=== PATIENT | male | born 1935 | race Caucasian/White ===

== ENCOUNTER → 2018-11-30 | Outpatient (CLI) | payer OTHER ==
[~2018-11-30] MED LIST: ACEDIPPM PO; CARV6.25 PO; CEPH500 PO; DICL75ER PO; DIGO.125 PO; DOCU100 PO; LISI5 PO; MED FOR TREMORS; MESA400ER PO; NAPR500; OXYACE5T PO; PRIM50 PO; SPIR25 PO; SULTRIDS PO; SULTRISS PO; WARF10 PO; WARF5 PO; WARF7.5; WARF7.5 PO
== END | disposition home or self-care (01) ==
LOC: PLD 07:27 → LAB SHORT 07:27
DX: L57.0 Actinic keratosis (principal)
CPT/HCPCS: 88305; 88312

== ENCOUNTER 2019-01-14 12:30 | Day surgery (SDC) | payer OTHER | END 2019-01-14 23:02 | disposition home or self-care (01) | LOC: WOUND 12:30 | DX: L97.412 Non-pressure chronic ulcer of right heel and midfoot with fat layer exposed (principal); I11.0 Hypertensive heart disease with heart failure; I50.9 Heart failure, unspecified; I42.9 Cardiomyopathy, unspecified; G47.30 Sleep apnea, unspecified; I42.0 Dilated cardiomyopathy; R41.3 Other amnesia; E55.9 Vitamin D deficiency, unspecified; I89.0 Lymphedema, not elsewhere classified; D53.9 Nutritional anemia, unspecified; G40.909 Epilepsy, unspecified, not intractable, without status epilepticus; M19.90 Unspecified osteoarthritis, unspecified site; I82.409 Acute embolism and thrombosis of unspecified deep veins of unspecified lower extremity | CPT/HCPCS: G0463 ==

== ENCOUNTER 2019-01-21 01:16 | Day surgery (SDC) | payer OTHER | END 2019-01-21 22:48 | disposition home or self-care (01) | LOC: WOUND 01:16 | DX: L97.412 Non-pressure chronic ulcer of right heel and midfoot with fat layer exposed (principal); I11.0 Hypertensive heart disease with heart failure; I50.9 Heart failure, unspecified; D64.9 Anemia, unspecified; M19.90 Unspecified osteoarthritis, unspecified site; G47.30 Sleep apnea, unspecified; Z86.718 Personal history of other venous thrombosis and embolism; Z79.899 Other long term (current) drug therapy; Z79.01 Long term (current) use of anticoagulants ==

== ENCOUNTER 2019-01-28 14:45 | Day surgery (SDC) | payer OTHER | END 2019-01-28 23:52 | disposition home or self-care (01) | LOC: WOUND 14:45 | DX: L97.412 Non-pressure chronic ulcer of right heel and midfoot with fat layer exposed (principal); G47.30 Sleep apnea, unspecified; D64.9 Anemia, unspecified; I50.9 Heart failure, unspecified; I11.0 Hypertensive heart disease with heart failure; G40.909 Epilepsy, unspecified, not intractable, without status epilepticus; M19.90 Unspecified osteoarthritis, unspecified site; I89.0 Lymphedema, not elsewhere classified | CPT/HCPCS: Q4196 ==

== ENCOUNTER 2019-02-04 10:00 | Day surgery (SDC) | payer OTHER | END 2019-02-04 23:34 | disposition home or self-care (01) | LOC: WOUND 10:00 | DX: L97.412 Non-pressure chronic ulcer of right heel and midfoot with fat layer exposed (principal); I11.0 Hypertensive heart disease with heart failure; I50.9 Heart failure, unspecified; I48.91 Unspecified atrial fibrillation; G47.30 Sleep apnea, unspecified; G40.909 Epilepsy, unspecified, not intractable, without status epilepticus; Z86.718 Personal history of other venous thrombosis and embolism | CPT/HCPCS: Q4196 ==

== ENCOUNTER 2019-02-11 14:18 | Day surgery (SDC) | payer OTHER | END 2019-02-11 23:38 | disposition home or self-care (01) | LOC: WOUND 14:18 | DX: L97.412 Non-pressure chronic ulcer of right heel and midfoot with fat layer exposed (principal); I11.0 Hypertensive heart disease with heart failure; I50.9 Heart failure, unspecified; I48.91 Unspecified atrial fibrillation; G47.30 Sleep apnea, unspecified; G40.909 Epilepsy, unspecified, not intractable, without status epilepticus; I25.10 Atherosclerotic heart disease of native coronary artery without angina pectoris; Z86.718 Personal history of other venous thrombosis and embolism ==

== ENCOUNTER 2019-02-18 14:00 | Day surgery (SDC) | payer OTHER | END 2019-02-18 22:47 | disposition home or self-care (01) | LOC: WOUND 14:00 | DX: L97.412 Non-pressure chronic ulcer of right heel and midfoot with fat layer exposed (principal); I11.0 Hypertensive heart disease with heart failure; I50.9 Heart failure, unspecified; G47.30 Sleep apnea, unspecified; Z86.718 Personal history of other venous thrombosis and embolism | CPT/HCPCS: Q4196 ==

== ENCOUNTER 2019-02-25 00:19 | Day surgery (SDC) | payer OTHER | END 2019-02-25 22:55 | disposition home or self-care (01) | LOC: WOUND 00:19 | DX: L97.412 Non-pressure chronic ulcer of right heel and midfoot with fat layer exposed (principal); I11.0 Hypertensive heart disease with heart failure; I50.9 Heart failure, unspecified; D64.9 Anemia, unspecified; I25.10 Atherosclerotic heart disease of native coronary artery without angina pectoris; I48.91 Unspecified atrial fibrillation; I42.9 Cardiomyopathy, unspecified; G47.30 Sleep apnea, unspecified; Z86.718 Personal history of other venous thrombosis and embolism | CPT/HCPCS: Q4196 ==

== ENCOUNTER 2019-03-04 00:21 | Day surgery (SDC) | payer OTHER | END 2019-03-04 22:49 | disposition home or self-care (01) | LOC: WOUND 00:21 | DX: L97.412 Non-pressure chronic ulcer of right heel and midfoot with fat layer exposed (principal); I11.0 Hypertensive heart disease with heart failure; I50.9 Heart failure, unspecified; I48.91 Unspecified atrial fibrillation; G47.30 Sleep apnea, unspecified; Z86.718 Personal history of other venous thrombosis and embolism; D64.9 Anemia, unspecified ==

== ENCOUNTER 2019-03-11 00:56 | Day surgery (SDC) | payer OTHER | END 2019-03-11 23:21 | disposition home or self-care (01) | LOC: WOUND 00:56 | DX: L97.412 Non-pressure chronic ulcer of right heel and midfoot with fat layer exposed (principal); I11.0 Hypertensive heart disease with heart failure; I50.9 Heart failure, unspecified; I48.91 Unspecified atrial fibrillation; D64.9 Anemia, unspecified; Z86.718 Personal history of other venous thrombosis and embolism ==

== ENCOUNTER 2019-03-18 00:24 | Day surgery (SDC) | payer OTHER | END 2019-03-18 23:14 | disposition home or self-care (01) | LOC: WOUND 00:24 | DX: L97.412 Non-pressure chronic ulcer of right heel and midfoot with fat layer exposed (principal); I89.0 Lymphedema, not elsewhere classified; G47.30 Sleep apnea, unspecified; I11.0 Hypertensive heart disease with heart failure; I50.9 Heart failure, unspecified; Z79.899 Other long term (current) drug therapy ==

== ENCOUNTER 2019-03-25 10:30 | Day surgery (SDC) | payer OTHER, SELFPAY | END 2019-03-25 22:43 | disposition home or self-care (01) | LOC: WOUND 10:30 | DX: L97.412 Non-pressure chronic ulcer of right heel and midfoot with fat layer exposed (principal); I11.0 Hypertensive heart disease with heart failure; I50.9 Heart failure, unspecified; G47.30 Sleep apnea, unspecified; I48.91 Unspecified atrial fibrillation; D64.9 Anemia, unspecified; G40.909 Epilepsy, unspecified, not intractable, without status epilepticus; Z86.718 Personal history of other venous thrombosis and embolism; Z79.899 Other long term (current) drug therapy; Z79.01 Long term (current) use of anticoagulants; R60.9 Edema, unspecified; M20.41 Other hammer toe(s) (acquired), right foot; M19.071 Primary osteoarthritis, right ankle and foot | CPT/HCPCS: 73630; 87071; 87075; 87077; 87186; 87205; G0463 ==

== ENCOUNTER 2019-04-01 10:30 | Day surgery (SDC) | payer OTHER, SELFPAY | END 2019-04-01 23:26 | disposition home or self-care (01) | LOC: WOUND 10:30 | DX: L97.412 Non-pressure chronic ulcer of right heel and midfoot with fat layer exposed (principal); G47.30 Sleep apnea, unspecified; I89.0 Lymphedema, not elsewhere classified; I11.0 Hypertensive heart disease with heart failure; I50.9 Heart failure, unspecified; M19.90 Unspecified osteoarthritis, unspecified site; Z79.899 Other long term (current) drug therapy ==

== ENCOUNTER 2019-04-08 10:43 | Day surgery (SDC) | payer OTHER, SELFPAY | END 2019-04-08 22:53 | disposition home or self-care (01) | LOC: WOUND 10:43 | DX: L97.412 Non-pressure chronic ulcer of right heel and midfoot with fat layer exposed (principal); G47.30 Sleep apnea, unspecified; I11.0 Hypertensive heart disease with heart failure; I50.9 Heart failure, unspecified; Z79.899 Other long term (current) drug therapy ==

== ENCOUNTER 2019-04-15 10:38 | Day surgery (SDC) | payer OTHER, SELFPAY | END 2019-04-15 23:08 | disposition home or self-care (01) | LOC: WOUND 10:38 | DX: L97.412 Non-pressure chronic ulcer of right heel and midfoot with fat layer exposed (principal); I73.9 Peripheral vascular disease, unspecified; I11.0 Hypertensive heart disease with heart failure; I50.9 Heart failure, unspecified; I48.91 Unspecified atrial fibrillation; I25.10 Atherosclerotic heart disease of native coronary artery without angina pectoris; D64.9 Anemia, unspecified; G47.30 Sleep apnea, unspecified; Z79.899 Other long term (current) drug therapy; Z86.718 Personal history of other venous thrombosis and embolism ==

== ENCOUNTER 2019-04-29 10:35 | Day surgery (SDC) | payer OTHER, SELFPAY | END 2019-04-29 22:57 | disposition home or self-care (01) | LOC: WOUND 10:35 | DX: L97.412 Non-pressure chronic ulcer of right heel and midfoot with fat layer exposed (principal); I73.9 Peripheral vascular disease, unspecified; I11.0 Hypertensive heart disease with heart failure; I50.9 Heart failure, unspecified; I48.91 Unspecified atrial fibrillation; I25.10 Atherosclerotic heart disease of native coronary artery without angina pectoris; G47.30 Sleep apnea, unspecified; D64.9 Anemia, unspecified; Z86.73 Personal history of transient ischemic attack (TIA), and cerebral infarction without residual deficits | CPT/HCPCS: G0463 ==

== ENCOUNTER 2019-05-06 00:18 | Day surgery (SDC) | payer OTHER, SELFPAY | END 2019-05-06 22:55 | disposition home or self-care (01) | LOC: WOUND 00:18 | DX: E11.621 Type 2 diabetes mellitus with foot ulcer (principal); L97.412 Non-pressure chronic ulcer of right heel and midfoot with fat layer exposed; I11.0 Hypertensive heart disease with heart failure; I50.9 Heart failure, unspecified; E11.51 Type 2 diabetes mellitus with diabetic peripheral angiopathy without gangrene; I73.9 Peripheral vascular disease, unspecified; E11.40 Type 2 diabetes mellitus with diabetic neuropathy, unspecified; I48.91 Unspecified atrial fibrillation; D64.9 Anemia, unspecified; G47.30 Sleep apnea, unspecified; Z86.718 Personal history of other venous thrombosis and embolism; Z79.899 Other long term (current) drug therapy | CPT/HCPCS: 88305 ==

== ENCOUNTER 2019-05-10 00:13 | Day surgery (SDC) | payer OTHER, SELFPAY | END 2019-05-10 22:59 | disposition home or self-care (01) | LOC: WOUND 00:13 | PROC: 2W1 Placement, Anatomical Regions, Compression (ICD-10-PCS; principal; 2019-05-10) | DX: L97.412 Non-pressure chronic ulcer of right heel and midfoot with fat layer exposed (principal); I73.9 Peripheral vascular disease, unspecified; R60.9 Edema, unspecified; I42.9 Cardiomyopathy, unspecified; I11.0 Hypertensive heart disease with heart failure; I50.9 Heart failure, unspecified; I70.90 Unspecified atherosclerosis; R06.81 Apnea, not elsewhere classified; R41.3 Other amnesia; Z79.899 Other long term (current) drug therapy; Z86.718 Personal history of other venous thrombosis and embolism ==

== ENCOUNTER 2019-05-13 00:15 | Day surgery (SDC) | payer OTHER | END 2019-05-13 22:52 | disposition home or self-care (01) | LOC: WOUND 00:15 | DX: L97.412 Non-pressure chronic ulcer of right heel and midfoot with fat layer exposed (principal); I73.9 Peripheral vascular disease, unspecified; R60.9 Edema, unspecified; Z79.899 Other long term (current) drug therapy | CPT/HCPCS: G0463 ==

== ENCOUNTER 2019-05-27 10:40 | Day surgery (SDC) | payer OTHER | END 2019-05-27 23:01 | disposition home or self-care (01) | LOC: WOUND 10:40 | DX: L97.412 Non-pressure chronic ulcer of right heel and midfoot with fat layer exposed (principal); I73.9 Peripheral vascular disease, unspecified; I11.0 Hypertensive heart disease with heart failure; I50.9 Heart failure, unspecified; I42.9 Cardiomyopathy, unspecified; Z79.899 Other long term (current) drug therapy; Z86.718 Personal history of other venous thrombosis and embolism | CPT/HCPCS: G0463 ==

== ENCOUNTER 2019-06-10 10:39 | Day surgery (SDC) | payer OTHER | END 2019-06-10 23:33 | disposition home or self-care (01) | LOC: WOUND 10:39 | DX: L97.412 Non-pressure chronic ulcer of right heel and midfoot with fat layer exposed (principal); I73.9 Peripheral vascular disease, unspecified; Z79.899 Other long term (current) drug therapy | CPT/HCPCS: G0463 ==

== ENCOUNTER 2019-06-24 00:31 | Day surgery (SDC) | payer OTHER | END 2019-06-24 23:27 | disposition home or self-care (01) | LOC: WOUND 00:31 | DX: L97.412 Non-pressure chronic ulcer of right heel and midfoot with fat layer exposed (principal); I11.0 Hypertensive heart disease with heart failure; I50.9 Heart failure, unspecified; Z86.718 Personal history of other venous thrombosis and embolism; Z79.899 Other long term (current) drug therapy | CPT/HCPCS: 73630; 87070; 87077; 87147; 87186; 87205 ==

== ENCOUNTER 2019-07-01 10:44 | Day surgery (SDC) | payer OTHER | END 2019-07-01 22:42 | disposition home or self-care (01) | LOC: WOUND 10:44 | DX: L97.412 Non-pressure chronic ulcer of right heel and midfoot with fat layer exposed (principal); I73.9 Peripheral vascular disease, unspecified; I11.0 Hypertensive heart disease with heart failure; I50.9 Heart failure, unspecified; Z79.899 Other long term (current) drug therapy ==

== ENCOUNTER 2019-07-08 00:38 | Day surgery (SDC) | payer OTHER | END 2019-07-08 23:08 | disposition home or self-care (01) | LOC: WOUND 00:38 | DX: L97.412 Non-pressure chronic ulcer of right heel and midfoot with fat layer exposed (principal); I11.0 Hypertensive heart disease with heart failure; I50.9 Heart failure, unspecified; I48.91 Unspecified atrial fibrillation; I73.9 Peripheral vascular disease, unspecified; Z79.899 Other long term (current) drug therapy | CPT/HCPCS: G0463 ==

== ENCOUNTER 2019-07-15 00:10 | Day surgery (SDC) | payer OTHER | END 2019-07-15 23:52 | disposition home or self-care (01) | LOC: WOUND 00:10 | DX: L97.412 Non-pressure chronic ulcer of right heel and midfoot with fat layer exposed (principal); I73.9 Peripheral vascular disease, unspecified; I11.0 Hypertensive heart disease with heart failure; I50.9 Heart failure, unspecified; Z86.718 Personal history of other venous thrombosis and embolism; Z79.899 Other long term (current) drug therapy ==

== ENCOUNTER 2019-07-22 00:17 | Day surgery (SDC) | payer OTHER | END 2019-07-22 23:06 | disposition home or self-care (01) | LOC: WOUND 00:17 | DX: L97.412 Non-pressure chronic ulcer of right heel and midfoot with fat layer exposed (principal); I73.9 Peripheral vascular disease, unspecified; I11.0 Hypertensive heart disease with heart failure; I50.9 Heart failure, unspecified; Z86.718 Personal history of other venous thrombosis and embolism; Z79.899 Other long term (current) drug therapy ==

== ENCOUNTER 2019-08-05 09:24 | Day surgery (SDC) | payer OTHER | END 2019-08-05 23:38 | disposition home or self-care (01) | LOC: WOUND 09:24 | DX: L97.412 Non-pressure chronic ulcer of right heel and midfoot with fat layer exposed (principal); B95.62 Methicillin resistant Staphylococcus aureus infection as the cause of diseases classified elsewhere; I73.9 Peripheral vascular disease, unspecified; I11.0 Hypertensive heart disease with heart failure; I50.9 Heart failure, unspecified; Z79.899 Other long term (current) drug therapy ==

== ENCOUNTER 2019-08-12 00:08 | Day surgery (SDC) | payer OTHER | END 2019-08-12 23:59 | disposition home or self-care (01) | LOC: WOUND 00:08 | DX: L97.412 Non-pressure chronic ulcer of right heel and midfoot with fat layer exposed (principal); I73.9 Peripheral vascular disease, unspecified; I11.0 Hypertensive heart disease with heart failure; I50.9 Heart failure, unspecified; Z79.899 Other long term (current) drug therapy | CPT/HCPCS: G0463 ==

== ENCOUNTER → 2020-12-06 | Outpatient (CLI) | payer OTHER ==
[~2020-12-06] MED LIST changes: +ELIQUIS5 MG PO; +ENTRESTO 49 MG1 EACH PO; +LANOXIN125 MCG PO; +METAMUCIL POWD575 GM PO; +Norco 5-325 Ta1 EACH PO; +POLYETHYLENE G500 G1 PO; +PRIM250 PO; +TORSE20 PO; +Vitamin D2000 UNIT PO
== END | disposition home or self-care (01) ==
LOC: LAB SHORT 13:32 → LAB 13:32
DX: L08.9 Local infection of the skin and subcutaneous tissue, unspecified (principal); D48.5 Neoplasm of uncertain behavior of skin; L57.0 Actinic keratosis; M79.89 Other specified soft tissue disorders; Z85.828 Personal history of other malignant neoplasm of skin
CPT/HCPCS: 87070; 87077; 87147; 87186; 87205

== ENCOUNTER → 2023-08-04 | Outpatient (CLI) | payer OTHER ==
[2023-08-04 14:42] LABS: Creatinine Urine 67.7 mg/dL (27.00-270.00); Microalbumin, Urine Quant. 6.25 mg/L (0.000-20.000); Protein, Urine Quantitative 7.4 mg/dL (0.0-11.9)
== END | disposition home or self-care (01) ==
LOC: LAB SHORT 08:00 → LAB 08:00 → LAB SO 07-30 14:05
PROVIDERS: Internal Medicine Nephrology
DX: N18.2 Chronic kidney disease, stage 2 (mild) (principal); D63.1 Anemia in chronic kidney disease; N25.81 Secondary hyperparathyroidism of renal origin; E55.9 Vitamin D deficiency, unspecified; E78.00 Pure hypercholesterolemia, unspecified; D51.8 Other vitamin B12 deficiency anemias; D52.8 Other folate deficiency anemias; D50.9 Iron deficiency anemia, unspecified; R76.9 Abnormal immunological finding in serum, unspecified; R94.5 Abnormal results of liver function studies; R94.6 Abnormal results of thyroid function studies
CPT/HCPCS: 81050; 82043; 82570; 84156

== ENCOUNTER 2023-10-28 10:37 | Day surgery (SDC) | payer OTHER ==
[~2023-10-28 10:37] MED LIST changes: +ACET325 PO; +POTASSIUM99 M3 PO; +TOPROL XL25 MG PO; +Vitamin D1000 UNI1 PO; -Vitamin D2000 UNIT PO
== END 2023-10-28 11:00 | disposition home or self-care (01) ==
LOC: ORSCSDS 10:37
DX: H25.11 Age-related nuclear cataract, right eye (principal); Z53.9 Procedure and treatment not carried out, unspecified reason
CPT/HCPCS: J7040